=== PATIENT | female | born 1940 | race Caucasian/White ===

== ENCOUNTER 2016-10-23 08:30 | Day surgery (SDC) | payer MEDICARE, OTHER ==
[~2016-10-23] VITALS: Ht 162.6 cm; Wt 55.7 kg
[2016-10-23] VITALS (7 sets, daily range): BP systolic 100–143; BP diastolic 56–86; PULSE 70–85; RESP 12–21; TEMP 98.2–98.4; O2SAT 94–99; Ht 162.6 cm; Wt 55.7 kg
[~2016-10-23 08:30] MED LIST: ASPI-611 PO; CALC600T2 PO; CHOL400T23 PO; CYAN500T2 PO; LIDOCAINE 1% (10mg/ml) 2ml SDV INJ ONE; LR 1,000 ML IV SCH; MAGN250T33 PO; TURM500C8 PO; VITA-286 PO; [UNRECOGNIZED DRUG - CODE] PO
--- OUTSIDE RECORDS SUMMARY | 2016-10-23 08:35 | XMS REPORT | Referral Summary ---
Author Author [facility] Organization [facility] Address Unknown Phone Unavailable Care Team Providers Care Mason Tender Name Role Phone Wilmer Vasquez Primary Care Physician [phone] Encounter VC Date(s): 10/19/15 - 10/19/15 [facility] [address] [place] [address]- Discharge Diagnosis: Bilateral sensorineural hearing loss Discharge Disposition: 01-Home or Self Care Attending Physician: Rae Knight Admitting Physician: Rae Knight Referring Physician: Ge Daniels MD Vital Signs No data available for this section Problem List Condition Effective Dates Status Health Status Informant Arthritis(Confirmed) Active Dry eyes(Confirmed) Active Osteoporosis(Confirm Active ed) Bilateral Active sensorineural hearing loss(Confirmed) Tension Active headache(Confirmed) Allergies, Adverse Reactions, Alerts Substance Reaction Severity Status cephalexin Active Medications aspirin 81 mg oral tablet 1 tabs, Oral, Daily, 0 Refill(s) Start Date: 04/14/14 Status: Ordered calcitonin 200 intl units/inh nasal spray See Instructions, USE 1 SPRAY IN 1 NOSTRIL ONCE DAILY. ALTERNATE NOSTRILS, # 3.7 sprays, 4 Refill(s), eRx: [facility], USE 1 SPRAY IN 1 NOSTRIL ONCE DAILY. ALTERNATE NOSTRILS Start Date: 02/22/15 Status: Ordered calcium carbonate 1 tabs, Oral, BID, 0 Refill(s) Start Date: 04/14/14 Status: Ordered Curcumin Curcumin, See Instructions, 1,000mcg daily, 0 Refill(s) Start Date: 07/05/15 Status: Ordered magnesium citrate 250 mg, Oral, Daily, 0 Refill(s) Start Date: 07/05/15 Status: Ordered Multivitamins oral tablet 1 tabs, Oral, Daily, 0 Refill(s) Start Date: 04/14/14 Status: Ordered Osteo Bi-Flex 1 tabs, BID, caplet., 0 Refill(s) Start Date: 04/14/14 Status: Ordered Probiotic Formula caps, Oral, Daily, 0 Refill(s) Start Date: 07/29/15 Status: Ordered Vitamin B12 Methylcobalamin SubLingual, Daily, 0 Refill(s) Start Date: 07/05/15 Status: Ordered vitamin E 400 intl units oral capsule 1 caps, Oral, Daily, 0 Refill(s) Start Date: 04/14/14 Status: Ordered Results No data available for this section Immunizations Vaccine Date Refusal Reason tetanus/diphth/pertuss (Tdap) adult/adol 07/29/15 influenza virus vaccine, inactivated 05/10/15 influenza virus vaccine, inactivated 05/04/14 pneumococcal 13-valent conjugate vaccine 10/22/14 pneumococcal 23-polyvalent vaccine 08/14/05 tetanus-diphth toxoids (Td) adult/adol 08/14/05 Procedures Procedure Date Related Diagnosis Body Site Colonoscopy1 03/19/14 Colonoscopy2 03/11/09 Nevus Removal 11/21/07 Cataract left Cataract right Tonsillectomy Tubal ligation 1normal, may not repeat due to age,unless symptoms warrant 2within normal limits. Family history of colon carcinoma. Plan repeat colonoscopy in 5 years. Social History Social History Type Response Smoking Status Never smoker Assessment and Plan No data available for this section
--- OUTSIDE RECORDS SUMMARY | 2016-10-23 08:35 | XMS REPORT | Continuity of Care Document ---
Author Author Destiny Wen MA [facility] Address Unknown Phone Unavailable Payers Payer name Insurance type Covered alliance party ID Authorization(s) Unknown Problems Condition Effective Dates (start - stop) Clinical Status Osteoporosis - *Chronic Pulsatile abdominal mass - *Acute Hearing loss - *Chronic Osteoporosis - *Chronic Family History Family Member Diagnosis Age At Onset Status Unknown Social History Social History Element Description Quantity Unknown Allergies, Adverse Reactions, Alerts Substance Reaction Severity Status CEPHALEXIN Unknown Medications Medication Instructions Dosage Effective Dates (start - stop) Status vitamin E 400 unit capsule take 1 Capsule by Oral route every day 0 - Active Vitamin D3 400 unit capsule take 1 Capsule by Oral route every day 0 - Active takes 1 tablet BID - Active Forteo 20 mcg/dose (600 mcg/2.4 mL) subcutaneous pen injector inject 0.08 milliliter (20MCG) by subcutaneous route every day into the thigh or abdominal wall 20 MCG - No Longer Active CALCIUM (unknown strength) take 1 Tablet by Oral route 2 times every day - Active multivitamin tablet take 1 Tablet by Oral route every day 0 - Active AsperDrink 81 mg effervescent tablet take 1 Tablet by Oral route every day 0 - Active Miacalcin 200 unit/actuation nasal spray 1 SPRAY IN EACH NOSTRIL ALTERNATING DAYS. - Active Immunizations Vaccine Date Status Comments Unknown Results Test Name Date and Time Measure Units Reference Range Abnormal Flag Comments Unknown Vital Signs Date / Time: Height Weight Pulse Rate Blood Pressure Temperature /10:23:00 64.00 in 121.40 lbs 76 /min 112/64 mm[Hg] 98.1 F Procedures Procedure Date Unknown Encounters Encounter Location Date Patient Visit [facility] Patient Visit [facility] Patient Visit [facility] Advance Directives Directive Effective Date Unknown
--- OUTSIDE RECORDS SUMMARY | 2016-10-23 08:35 | XMS REPORT | Referral Summary ---
Author Author [facility] Organization [facility] Address Unknown Phone Unavailable Care Team Providers Care Associate Professor Of Engineering Name Role Phone Wilmer Vasquez Primary Care Physician [phone] Encounter VC Date(s): 07/29/15 - 07/29/15 [facility] [address] [place] [address] Discharge Diagnosis: Abnormal urine color Discharge Diagnosis: Arthritis Discharge Diagnosis: Osteoporosis Discharge Disposition: 01-Home or Self Care Attending Physician: Kendal Vasquez DO Admitting Physician: Kendal Vasquez DO Vital Signs Most recent to 1 oldest [Reference Range]: Peripheral Pulse 86 bpm Rate [60-100 bpm] (07/29/15 3:24 PM) Respiratory Rate 18 br/min [14-20 br/min] (07/29/15 3:24 PM) Blood Pressure 124/76 mmHg [90-140/60-90 mmHg] (07/29/15 3:24 PM) SpO2 97 % (07/29/15 3:24 PM) Problem List Condition Effective Dates Status Health [...] NOSTRILS, # 3.7 sprays, 4 Refill(s), eRx: [facility], USE 1 SPRAY IN 1 NOSTRIL [...] Smoking Status Never smoker Assessment and Plan Extracted from: Title: Office Visit Note Author: Kendal Vasquez DO Date: 07/29/15 Assessment/Plan Abnormal urine color Reassurance given that this is likely secondary to the color of her multivitamin. Ordered: Office Visit Level 4 Est 53062 Arthritis A she would not like to do anything this time. She was advised that there are options that we can take at the pointwhen she cannot tolerate this pain level anymore. Ordered: Office Visit Level 4 Est 89318 Osteoporosis DEXA scan ordered. Continue calcitonin. Ordered: Office Visit Level 4 Est 55756 Orders: BD Bone Density DEXA Axial Skeleton
--- OUTSIDE RECORDS SUMMARY | 2016-10-23 08:35 | XMS REPORT | Referral Summary ---
Author Author [facility] Organization [facility] Address Unknown Phone Unavailable Care Team Providers Care Imaging Specialist Name Role Phone Wilmer Vasquez Primary Care Physician [phone] Encounter Date(s): 09/13/15 - 09/13/15 [facility] [address] [place] [address] [place] [address] [facility] Discharge Diagnosis: Bilateral sensorineural hearing loss Discharge [...] NOSTRILS, # 3.7 sprays, 4 Refill(s), eRx: [facility], USE 1 SPRAY IN [...]
--- OUTSIDE RECORDS SUMMARY | 2016-10-23 08:35 | XMS REPORT | Referral Summary ---
Author Author [facility] Organization [facility] Address Unknown Phone Unavailable Care Team Providers Care Sheet Metal Work Furnace Installer Name Role Phone Wilmer Vasquez Primary Care Physician [phone] Encounter VC Date(s): 07/05/15 - 07/05/15 [facility], [address] [place] [address] Discharge Disposition: 01-Home or Self Care Attending Physician: Gabriel Flores APRN Admitting Physician: Gabriel Flores APRN Vital Signs Most recent to 1 oldest [Reference Range]: Temperature Tympanic 36.9 degC [36.6-38.1 degC] (07/05/15 3:05 PM) Peripheral Pulse 91 bpm Rate [60-100 bpm] (07/05/15 3:05 PM) Respiratory Rate 18 br/min [14-20 br/min] (07/05/15 3:05 PM) Blood Pressure 112/78 mmHg [90-140/60-90 mmHg] (07/05/15 3:05 PM) SpO2 98 % (07/05/15 3:05 PM) Problem List Condition Effective Dates Status Health Status Informant Dry eyes(Confirmed) Active Bilateral Active sensorineural hearing loss(Confirmed) Tension Active headache(Confirmed) Allergies, Adverse Reactions, Alerts Substance Reaction Severity Status cephalexin Active Medications aspirin 81 mg oral tablet 1 tabs, Oral, Daily, 0 Refill(s) Start Date: 04/14/14 Status: Ordered Augmentin 875 mg-125 mg oral tablet 1 tabs, Oral, q12hr, X 10 days, # 20 tabs, 0 Refill(s), Pharmacy: [facility] Start Date: 07/05/15 Stop Date: 07/15/15 Status: Ordered calcitonin 200 intl units/inh nasal spray See Instructions, USE 1 SPRAY IN 1 NOSTRIL ONCE DAILY. ALTERNATE NOSTRILS, # 3.7 sprays, 4 Refill(s), eRx: [facility], USE 1 SPRAY IN 1 NOSTRIL [...] 0 Refill(s) Start Date: 04/14/14 Status: Ordered Vitamin B12 Methylcobalamin SubLingual, Daily, 0 Refill(s) Start Date: 07/05/15 Status: Ordered Vitamin D3 400 intl units oral capsule 1 caps, Oral, Daily, 0 Refill(s) Start Date: 04/14/14 Status: Ordered vitamin E 400 intl units oral capsule 1 caps, Oral, Daily, 0 Refill(s) Start Date: 04/14/14 Status: Ordered Results No data available for this section Immunizations Vaccine Date Refusal Reason influenza virus vaccine, inactivated 05/10/15 influenza virus [...]
--- OUTSIDE RECORDS SUMMARY | 2016-10-23 08:35 | XMS REPORT | Referral Summary ---
Author Author [facility] Organization [facility] Address Unknown Phone Unavailable Care Team Providers Care Industrial Pharmacist Name Role Phone Wilmer Vasquez Primary Care Physician [phone] Encounter VC Date(s): 05/10/15 - 05/10/15 [facility] [address] [place] [id number] Discharge Disposition: 01-Home or Self Care Attending Physician: Kendal Vasquez DO Admitting Physician: Kendal Vasquez DO Vital Signs No data available for this [...] NOSTRILS, # 3.7 sprays, 4 Refill(s), eRx: [facility], USE 1 SPRAY IN 1 [...] Procedures Procedure Date Related Diagnosis Body Site Mammogram 10/27/15 Colonoscopy1 03/19/14 Colonoscopy2 03/11/09 Nevus Removal 11/21/07 Cataract left Cataract right Tonsillectomy Tubal ligation 1normal, may not repeat due to age,unless symptoms warrant 2within normal limits. Family history of colon carcinoma. Plan repeat colonoscopy in 5 years. Social History Social History Type Response Smoking Status Never smoker Assessment and Plan No data available for this section
--- OUTSIDE RECORDS SUMMARY | 2016-10-23 08:35 | XMS REPORT | Referral Summary ---
Author Author [facility] Organization [facility] Address Unknown Phone Unavailable Care Team Providers Care Tester Operator Helper Name Role Phone Wilmer Vasquez Primary Care Physician [phone] Encounter Date(s): 12/01/14 - 12/01/14 [facility] [address] [place] [address] [place] [address] [facility] Discharge Diagnosis: Bilateral sensorineural hearing loss Discharge Disposition: 01-Home or Self Care Attending Physician: Rae Knight Admitting Physician: Rae Knight Referring Physician: Veronika Corey MD Vital Signs No data available for [...] # 3.7 sprays, 4 Refill(s), eRx: [facility], USE 1 SPRAY IN 1 NOSTRIL ONCE DAILY. ALTERNATE NOSTRILS Start Date: 02/22/15 Status: Ordered calcium carbonate 1 tabs, Oral, BID, 0 Refill(s) Start Date: 04/14/14 Status: Ordered Multivitamins oral tablet 1 tabs, Oral, Daily, 0 Refill(s) Start Date: 04/14/14 Status: Ordered Osteo Bi-Flex 1 tabs, BID, caplet., 0 Refill(s) Start Date: 04/14/14 Status: Ordered Vitamin D3 400 intl units [...]
--- OUTSIDE RECORDS SUMMARY | 2016-10-23 08:35 | XMS REPORT | Continuity of Care Document ---
Author Author [facility] Organization [facility] Address Unknown Phone Unavailable Support Name Relationship Address Phone ERI BLANCHARD MD Caregiver [address] [place] [address] [place] [phone] MONSTER RUTHERFORD FACSS Caregiver [address] [place] [address] [place] [phone] HUAN MILLER Next Of Kin [address] [place] [address] Insurance Providers Payer Name Policy Number Subscriber Name Relationship Medicare [id number] Jakub Miller 16 Self [place] [id number] Jakub Miller 18 Self Advance Directives Directive Response Recorded Date/Time Ordered Resuscitation Status Full Code 03/18/14 1:47pm Resuscitation Documents on File No 03/18/14 1:28pm Problems No known problems or medical conditions. Medications Medication Dose Route Sig Days/Qty Instructions Order Date Discontinued Date Status Aspirin 81 Mg PO DAILY 03/11/09 Active Vitamin E 400 Unit PO DAILY 03/11/09 Active Calcium Carbonate 1,200 Mg PO DAILY 03/11/09 Active Multivitamins-Min/FA/Ginkgo 1 Tab PO DAILY 03/18/14 Active Calcitonin,Ulster,Synthetic 1 [place] INH DAILY 03/18/14 Active Cholecalciferol (Vitamin D3) 1 Cap PO DAILY 03/18/14 Active Glucosamine HCl/Chondr Benavidez A Na 1 Tab PO TWICE A DAY 03/18/14 Active Magnesium Oxide 1 Cap PO NEEDED 03/18/14 Active Social History Social History Problem Response Recorded Date/Time Smoking Status Never smoker 03/18/2014 1:28pm Chewing Tobacco Status No 03/18/2014 1:28pm Hx Substance Use No 03/18/2014 1:28pm Hx Alcohol Use No 03/18/2014 1:28pm Hospital Discharge Instructions No hospital discharge instructions. Plan of Care No plan of care. Functional Status No functional status results. Allergies, Adverse Reactions, Alerts Allergen Type Severity Reaction Status Last Updated Cephalexin Adverse Reaction Unknown DIARRHEA Active 03/10/09 Immunizations Name Given Type Hx Influenza Vaccination Y FALL 2012 Historical Hx Pneumococcal Vaccination Y 2005 Historical Hx Influenza Vaccination Y FALL 2012 Historical Vital Signs Acute Vital Signs Vital Response Date/Time Temperature (Fahrenheit) 97.6 deg F (96.8 - 99.1) Temperature (Calculated Celsius) 36.34152 degrees C (36.0 - 37.3) Temperature Source Temporal Pulse Rate (adult) 74 bpm (60 - 100) Respiratory Rate 16 breaths/min (10 - 20) O2 Sat by Pulse Oximetry 96 % (90 - 100) Oxygen Delivery Method Room Air Blood Pressure 104/64 mm Hg Blood Pressure Source Automatic Cuff Height 5 ft 4 in Weight 118 lb Body Mass Index 20.0 kg/m^2 Results No known relevant diagnostic tests, laboratory data and/or discharge summary. Procedures Procedure Status Date Provider(s) Colonoscopy completed 03/19/14 MONSTER RUTHERFORD MD, FACS, CWS
--- OUTSIDE RECORDS SUMMARY | 2016-10-23 08:35 | XMS REPORT | Referral Summary ---
Author Author [facility] Organization [facility] Address Unknown Phone Unavailable Care Team Providers Care Membership Counselor Name Role Phone Wilmer Vasquez Primary Care Physician [phone] Encounter VC Date(s): 11/15/15 - 11/15/15 [facility] [address] [place] [address] [place] [address] [facility] Discharge Diagnosis: Bilateral sensorineural hearing loss Discharge [...] NOSTRILS, # 3.7 sprays, 4 Refill(s), eRx: [facility], USE 1 SPRAY IN 1 NOSTRIL [...]
--- OUTSIDE RECORDS SUMMARY | 2016-10-23 08:35 | XMS REPORT | Referral Summary ---
Author Author [facility] Organization [facility] Address Unknown Phone Unavailable Care Team Providers Care Chemical Tester Name Role Phone Wilmer Vasquez Primary Care Physician [phone] Encounter Date(s): 12/01/14 - 12/01/14 [facility] [address] [place] [address] [place] [address] [facility] Discharge Diagnosis: Bilateral sensorineural hearing loss Discharge [...] NOSTRILS, # 3.7 sprays, 4 Refill(s), eRx: [facility], USE 1 SPRAY IN [...]
--- OUTSIDE RECORDS SUMMARY | 2016-10-23 08:35 | XMS REPORT | Referral Summary ---
Author Author [facility] Organization [facility] Address Unknown Phone Unavailable Care Team Providers Care Plug Cutting Machine Operator Name Role Phone Wilmer Vasquez Primary Care Physician [phone] Encounter VC Date(s): 05/10/15 - 05/10/15 [facility] [address] [place] [address] Discharge Disposition: 01-Home or Self Care Attending Physician: Kendal Vasqeuz DO Admitting Physician: Kendal Vasquez DO Vital [...] NOSTRILS, # 3.7 sprays, 4 Refill(s), eRx: [facility], USE 1 SPRAY IN 1 NOSTRIL [...]
--- OUTSIDE RECORDS SUMMARY | 2016-10-23 08:35 | XMS REPORT | Referral Summary ---
Author Author [facility] Organization [facility] Address Unknown Phone Unavailable Care Team Providers Care Wire Machine Operator Name Role Phone Wilmer Vasquez Primary Care Physician [phone] Encounter Date(s): 12/01/14 - 12/01/14 [facility] [address] [place] [address] [place] [address] [facility] Discharge Diagnosis: Bilateral sensorineural hearing loss [...] NOSTRILS, # 3.7 sprays, 4 Refill(s), eRx: [facility], USE 1 SPRAY IN [...]
--- OUTSIDE RECORDS SUMMARY | 2016-10-23 08:35 | XMS REPORT | Continuity of Care Document ---
Author Author [facility] Organization [facility] Address Unknown Phone Unavailable Allergies Medications Problems Procedures Results Encounters ACCT No. Visit Date/Time Discharge Status Pt. Type Provider Facility Loc./Unit Complaint [id number] 09/22/2013 10:13:00 09/22/2013 23 :59:59 CLS Outpatient
--- OUTSIDE RECORDS SUMMARY | 2016-10-23 08:35 | XMS REPORT | Referral Summary ---
Author Author [facility] Organization [facility] Address Unknown Phone Unavailable Care Team Providers Care Latin Professor Name Role Phone Wilmer Vasquez Primary Care Physician [phone] Encounter Date(s): 12/01/14 - 12/01/14 [facility] [address] [place] [address] [place] [address] [facility] Discharge Diagnosis: Bilateral sensorineural hearing [...] NOSTRILS, # 3.7 sprays, 4 Refill(s), eRx: [facility], USE 1 SPRAY IN 1 [...]
--- OUTSIDE RECORDS SUMMARY | 2016-10-23 08:35 | XMS REPORT | Referral Summary ---
Author Author [facility] Organization [facility] Address Unknown Phone Unavailable Care Team Providers Care Networker Name Role Phone Wilmer Vasquez Primary Care Physician [phone] Encounter Date(s): 09/08/16 - 09/08/16 [facility] [address] [place] [address] Discharge Diagnosis: Osteoporosis Discharge Diagnosis: Acute bacterial sinusitis Discharge Diagnosis: Seborrheic keratosis Discharge Diagnosis: Early satiety Discharge Disposition: 01-Home or Self Care Attending Physician: Kendal Vasquez DO Admitting Physician: Kendal Vasquez DO Vital Signs Most recent to 1 oldest [Reference Range]: Temperature Tympanic 36.5 degC [36.6-38.1 degC] *LOW* (09/08/16 10:27 AM) Peripheral Pulse 74 bpm Rate [60-100 bpm] (09/08/16 10:27 AM) Respiratory Rate 18 br/min [14-20 br/min] (09/08/16 10:27 AM) Blood Pressure 110/58 mmHg [90-140/60-90 mmHg] (09/08/16 10:27 AM) SpO2 98 % (09/08/16 10:27 AM) Problem List Condition Effective Dates Status Health Status Informant Arthritis(Confirmed) Active Dry eyes(Confirmed) Active Osteoporosis(Confirm Active ed) Bilateral Active sensorineural hearing loss(Confirmed) Tension Active headache(Confirmed) Allergies, Adverse Reactions, Alerts Substance Reaction Severity Status cephalexin Active Medications aspirin 81 mg oral tablet 1 tabs, Oral, Daily, 0 Refill(s) Start Date: 04/14/14 Status: Ordered calcium carbonate 1 tabs, Oral, BID, 0 Refill(s) Start Date: 04/14/14 Status: Ordered CoQ10 See Instructions, mg Oral Daily, 0 Refill(s) Start Date: 09/08/16 Status: Ordered Curcumin Curcumin, See Instructions, 1,000mcg daily, 0 Refill(s) Start Date: 07/05/15 Status: Ordered Levaquin 750 mg oral tablet 750 mg 1 tabs, Oral, q24hr, X 7 days, # 7 tabs, 0 Refill(s), Pharmacy: [facility], 1 tabs Oral q24hr,x7 days Start Date: 09/08/16 Stop Date: 09/15/16 Status: Ordered magnesium citrate 250 mg, Oral, [...] No data available for this section Immunizations Given and Recorded Vaccine Date Status Refusal Reason tetanus/diphth/pertuss (Tdap) adult/adol 07/29/15 Given influenza virus vaccine, inactivated 05/10/15 Given influenza virus vaccine, inactivated 05/04/14 Recorded pneumococcal 13-valent conjugate vaccine 10/22/14 Given pneumococcal 23-polyvalent vaccine 08/14/05 Recorded tetanus-diphth toxoids (Td) adult/adol 08/14/05 Recorded Procedures Procedure Date Related Diagnosis Body Site [...] Visit Note Author: Kendal Vasquez DO Date: 09/08/16 Assessment/Plan Acute bacterial sinusitis We will give the patient some Levaquin and she'll let us know if this isn' t effective for her sinuses. Ordered: Office Visit Level 4 Est 75932 Early satiety Given this symptomas well as her history ofstomach cancer in her father and her concernwe will go ahead and send her to Gen. surgery for evaluation of whether an EGD would be appropriate. Ordered: Office Visit Level 4 Est 97679 Osteoporosis A drug holiday as warranted. We'll plan to discontinue her calcitonin and have herget her DEXA scanwhen she is due in July. Ordered: Office Visit Level 4 Est 23245 Seborrheic keratosis Discussed that these are benign and do not appear inflamed. Patient should keep an eye on these for any changes and removed if any changes are seen. Ordered: Office Visit Level 4 Est 86039
[2016-10-23] MEDS ORDERED: UBID100C29 (09:14)
[2016-10-23] MEDS ORDERED: MIDAZOLAM 2mg/2ml INJECTION ONE (10:09)
--- NOTE | 2016-10-23 11:02 | ANESPREOP ---
Anesthesia Record Date and Time DATE: 10/23/16 TIME: 1040 Proposed Surgical Procedure EGD Allergies: Coded Allergies: Cephalexin (Verified Adverse Reaction, Unknown, DIARRHEA, 03/10/09) Ht/Wt/BMI Height: 5 ' 4.00 " Weight: 55.700 kg BMI: 21.1 kg/m2 Vital Signs Date Time Temp Pulse Resp B/P Pulse Ox O2 Delivery O2 Flow Rate FiO2 10/23/16 09:00 98.4 85 12 143/74 95 Room Air Medications Inpatient Medications Current Medications Medications (Trade) Dose Ordered Sig/Eric Start Time Stop Time Status Last Admin Dose Admin Lactated Ringer's (Lactated Ringers) 1,000 ml @ 30 mls/hr Q24H 10/23/16 07:00 10/23/16 09:33 30 MLS/HR Aspirin (Aspirin) 81 Mg Tablet, 81 MG PO DAILY, (Reported) Last Taken: on 10/09/16 Calcium Carbonate (Caltrate 600) 600 Mg Tablet, 1, 200 MG PO DAILY, (Reported) Last Taken: on 10/09/16 Cholecalciferol (Vitamin D3) (Vitamin D-400) 400 Unit Tablet, 1 CAP PO DAILY, (Reported) Last Taken: on 10/09/16 Cyanocobalamin (Vitamin B-12) (Vitamin B-12) 500 Mcg Tablet, 1 TAB PO DAILY, (Reported) Last Taken: on 10/09/16 Magnesium Oxide (Magnesium) 250 Mg Tablet, 250 MG PO DAILY, (Reported) Last Taken: on 10/09/16 Multivitamins-Min/FA/Ginkgo (Women's 50+ Daily Formula Tab) 1 Each Tablet, 1 TAB PO DAILY, (Reported) Last Taken: on 10/09/16 Turmeric Root Extract (Turmeric) 500 Mg Capsule, 2 CAP PO DAILY, (Reported) Last Taken: on 10/09/16 Ubidecarenone (Co Q-10) 100 Mg Capsule, (Reported) Last Taken: on 10/09/16 Vitamin E (Vitamin E) 400 Unit Capsule, 400 UNIT PO DAILY, (Reported) Last Taken: on 10/09/16 Currently on Beta Darling: No Medical/Surgical History Anesthesia PMH: Reports: Arthritis, Denies: *Diabetes, Anesthesia Reactions ( NO AIRWAY/INTUBATION PROBLEMS), Blood Transfusion Reac, Cancer, Clotting Problems, Glaucoma, Malignant Hyperthermia, Renal Disease, Sleep Apnea, Thyroid Disease Smoking Status: Never smoker Use Chewing Tobacco?: No Substance Use Type: does not use Alcohol Intake: none Last Drink: hours (ago) (8) HX of Last Menstrual Period: AGE 53 Past Surgical History Orthopedic Surgeries: Abdominal Surgeries: Genitourinary Surgeries: Cardiac Surgeries: Endocrine Surgeries: Reproductive Surgeries: Yes - TUBAL Neurological Surgeries: Ear Surgeries: Nose Surgeries: Throat Surgeries: Yes - TONSILLECTOMY Other Surgeries: Yes - KRISTINE CATARACT,COLONOSCOPY X2 Anesthesia Adverse Reactions: FOUND none Family Hx of Anesthesia Advers: none Hx of Motion Sickness: No Physical Exam Respiratory: Lungs clear Cardiovascular: FOUND Regular rate, rhythm Airway Assessment Mallampati Score: II TMD: 3 Fingerbreadths Neck Extension: Fair Overall Assessment: No Airway Concerns ASA: 2 Plan Anesthesia Plan: TIVA Discussion Discussed risks/options/alternatives of anesthesia and questions answered. Patient consents. Nursing pain assessment noted. Attestation Statement Prior to the delivery of any anesthetic medication, I examined the patient, developed the plan, obtained the patient's consent and discussed the risk and benefits of the procedure with the patient/guardian. CHELY HIGGINS CRNA Oct 23, 2016 11:02
--- NOTE | 2016-10-23 11:13 | ANESPO ---
Post-Op Note Date 10/23/16 Time: 11:13 Status Pt Participated in Evaluation: Pt participated in person Vital Signs Date Time Temp Pulse Resp B/P Pulse Ox O2 Delivery O2 Flow Rate FiO2 10/23/16 09:00 98.4 85 12 143/74 95 Room Air Respiratory Function: Airway patent Cardiovascular Function: Regular pulse Mental Status: Alert/oriented Pain Level Intensity: 0 Hydration: Taking po fluids Complications during Recovery None apparent Follow-Up Instructions Instructions Per Surgeon CHELY HIGGINS CRNA Oct 23, 2016 11:13
--- NOTE | 2016-10-23 12:56 | OPNOTEF ---
DATE OF PROCEDURE 10/23/2016 SURGEON Moose Bell MD PREOPERATIVE DIAGNOSES Personal history for epigastric abdominal pain, family history for gastric carcinoma. POSTOPERATIVE DIAGNOSES Personal history for epigastric abdominal pain, family history for gastric carcinoma; gastric polyps, mild antritis. PROCEDURE Esophagogastroduodenoscopy with gastric polypectomies via cold biopsy technique, biopsy from antrum for permanent pathology as well as for JOSE assay. ANESTHESIA TIVA BRIEF HISTORY/INDICATIONS Mrs. Urrutia is a 76-year-old female who recently presented to my office as a result of her history for some epigastric abdominal pain as well as secondary to a family history for gastric carcinoma. Discussion was undertaken and it was concluded that we would proceed with esophagogastroduodenoscopy for further evaluation. For completeness please refer to notes included in the patient's chart. FINDINGS Upon upper endoscopy the patient was found to have several benign-appearing gastric polyps. These polyps were removed in their entirety endoscopically. The patient was also found to have some mild to moderate erythema within the antrum. Biopsies were obtained for permanent pathology as well as for JOSE assay to rule in or rule out the presence of H. pylori. There was no evidence for schuyler malignancies nor evidence for schuyler ulcerations. DESCRIPTION OF PROCEDURE After informed consent was obtained, the patient was brought to the endoscopy suite and placed on the table in left lateral decubitus position. The patient subsequently underwent total intravenous anesthesia by the nurse mechanical oxidizer per my request. Formal time-out was then completed. Next an Olympus gastroscope was inserted in the oral hypopharynx and subsequently the esophagus under direct visualization. Gastroscope was advanced through the esophagus, stomach, pylorus, duodenal bulb, and into the second portion of the duodenum. Scope was slowly withdrawn. First and second portions of duodenum were within normal limits. There was no evidence of duodenitis or ulcerations. Scope was withdrawn back to prepyloric region and antrum. As stated above, the patient was found to have some mild to moderate erythema within the antral portion of stomach. There was no evidence for schuyler ulcerations. A few biopsies were obtained from the antrum of the stomach for permanent pathology as well as for JOSE assay. This was done via cold biopsy technique. Scope was then slowly withdrawn and within the corpus of the stomach the patient was found have several benign-appearing gastric polyps. These polyps were fairly diminutive in nature on the order of 5-6 mm in diameter. These polyps were grasped and removed in their entirety via cold biopsy technique and also submitted for pathologic evaluation. A J-maneuver was performed. Cardia and fundus were within normal limits. Endoscopically, there was no evidence for a hiatal hernia. The scope was allowed to straighten and slowly withdrawn. The remaining corpus of the stomach was well visualized, again without noted abnormalities. Scope was withdrawn back to the level of the diaphragm. Squamocolumnar junction was located at the level of the diaphragm and was well demarcated with no endoscopic evidence for Baron's metaplasia or distal esophagitis. Scope was then slowly withdrawn and the remainder of the esophagus found within normal limits. The patient tolerated the procedure without difficulty and was sent back to the preop area in stable condition. Will await the biopsy results from today's EGD and proceed accordingly with further recommendations thereafter. [facility]
== END 2016-10-23 12:03 | disposition home or self-care (01) ==
LOC: SCU 08:30
PROVIDERS: ATTEND Surgery
DX: K29.60 Other gastritis without bleeding (principal); K31.7 Polyp of stomach and duodenum; Z80.0 Family history of malignant neoplasm of digestive organs; M81.0 Age-related osteoporosis without current pathological fracture; Z79.82 Long term (current) use of aspirin
CPT/HCPCS: 43239; 87081; J2250; J7120

== ENCOUNTER → 2016-11-06 | Outpatient (CLI) | payer MEDICARE, OTHER ==
[~2016-11-06] MED LIST changes: -LIDOCAINE 1% (10mg/ml) 2ml SDV INJ ONE; -LR 1,000 ML IV SCH; +UBID100C29
== END ==
LOC: WC.BC 09:02
DX: Z12.31 Encounter for screening mammogram for malignant neoplasm of breast (principal); N64.59 Other signs and symptoms in breast
CPT/HCPCS: 77063; G0202